=== PATIENT | female | born 1995 | race Caucasian/White ===

== ENCOUNTER 2016-09-09 23:30 | Emergency (ER) | payer SELFPAY ==
[2016-09-10] MEDS ORDERED: traMADol HCl 50 MG TAB ONE (01:36)
[2016-09-10] MEDS ORDERED: Benzonatate 100 MG CAP ONE (01:37)
--- NOTE | 2016-09-10 03:11 | PICIS ---
[facility] (FriSep 09, 2016 23:40 MDEB) PATIENT: NAME: Chely Sanderson, AGE: 21, GENDER: female, : Fri1995, TIME OF GREET: FriSep 09, 2016 23:30, PREFERRED LANGUAGE: Serbian, RACE: WHITE, ETHNICITY: Not or , ECODE BILLING MAP: [facility], SSN: [id number], Zip Code: [address], KG WEIGHT: 67.13, PHONE: , , , PERSON ID: [id number], PCP: Kennedi SWARTZ, GREYSON GORDON. (FriSep 09, 2016 23:40 MDEB) TRIAGE NOTES: CHEST PAIN WITH DEEP BREATHING - PAIN WITH EXHALATION. (FriSep 09, 2016 23:40 MDEB) COMPLAINT: CHEST PAINS. (FriSep 09, 2016 23:40 MDEB) ADMISSION: URGENCY: 3 Urgent, ADMISSION SOURCE: Home, TRANSPORT: Walk-in, BED: TRIAGE. (FriSep 09, 2016 23:40 MDEB) PAIN: Patient complains of pain described as, aching, on a scale 0-10 patient rates pain as 4. (FriSep 09, 2016 23:40 MDEB) IMMUNIZATIONS: Tetanus immunization up to date. (FriSep 09, 2016 23:40 MDEB) TRIAGE SCREENING: Patient denies suicidal ideation, Patient denies presence of domestic violence. (FriSep 09, 2016 23:40 MDEB) LMP: Last menstrual period: 09/07/2016. (FriSep 09, 2016 23:40 MDEB) PROVIDERS: TRIAGE NURSE: Natalya Thomas RN. (FriSep 09, 2016 23:40 MDEB) VITAL SIGNS: BP 124/72, Pulse 82, Resp 20, Temp 96.8, (Tympanic), Pain 4, O2 Sat 99, on Room Air, Time 09/09/2016 23:37. (23:37 MDEB) PREVIOUS VISIT ALLERGIES: No Known Drug Allergies. (FriSep 09, 2016 23:40 MDEB) KNOWN ALLERGIES No Known Drug Allergies CURRENT MEDICATIONS No recorded medications VITAL SIGNS (23:37 MDEB) VITAL SIGNS: BP: 124/72, Pulse: 82, Resp: 20, Temp: 96.8 (Tympanic), Pain: 4, O2 sat: 99 on Room Air, Time: 09/09/2016 23:37. NURSING ASSESSMENT: RESPIRATORY /CHEST (FriSep 10, 2016 01:45 BGAL) CONSTITUTIONAL: Patient arrives ambulatory, Gait steady, History obtained from patient, Patient appears comfortable, Patient cooperative, Patient alert, Oriented to person, place and time, Skin warm, Skin dry, Skin normal in color, Mucous membranes pink, Mucous membranes moist, Patient complains of Pain when deep breathing. PAIN: aching pain, bilateral chest. RESPIRATORY/CHEST: Breath sounds clear, Respiratory assessment findings include respiratory effort easy, Respirations regular, Conversing normally, Neck and chest exam findings include trachea midline, Chest expansion equal, Chest movement symmetrical. &a-1R&a+25V*p+0X*x2374J*c202B*c15G*c2P*p-0X&a-25V&a+1R Name: Chely Sanderson : 1995 F21 MedRec: [id number] AcctNum: [id number] Prepared: FriSep 10, 2016 04:51 by Interface Page 1 of 7 pMD [facility] ENT: Ear assessment findings include ear normal to inspection, Nasal assessment findings include nose normal to inspection, Sinuses normal, Nasal mucosa normal, Mouth and throat assessment findings include mouth inspection normal, Uvula normal, Tonsils normal, Mucous membranes pink, and moist, Able to swallow, Speech normal. SAFETY: Side rails up, Cart/Stretcher in lowest position, Family at bedside, Call light within reach, Hospital ID band on. NURSING PROCEDURE: DISCHARGE NOTE (FriSep 10, 2016 01:45 BGAL) DISCHARGE: Patient discharged to home, ambulating without assistance, friend driving, accompanied by friend, Summary of Care printed/ provided, Patient requested and was provided an electronic copy of Discharge Instructions, Transition record given to patient, Discharge instructions given to patient, Simple or moderate discharge teaching performed, Prescriptions given and instructions on side effects given, Medication reconciliation form given, Above person(s) verbalized understanding of discharge instructions and follow-up care. BELONGINGS: Belongings remain with patient, Valuables remain with patient. MEDICATION ADMINISTRATION SUMMARY Drug Name: Ultram, Dose Ordered: 2 tab(s), Route: Oral, Status: Given, Time: 01:44 09/10/2016, Drug Name: Bentyl oral, Dose Ordered: 10 mg, Route: Oral, Status: Given, Time: :44 09/10/2016, Drug Name: Tessalon Perles, Dose Ordered: 200 mg, Route: Oral, Status: Given, Time: 01:44 09/10/2016, Detailed record available in Medication Service section. MEDICATION SERVICE (FriSep 10, 2016 01:44 LLDO) Bentyl oral: Order: Bentyl oral (dicyclomine HCl) - Dose: 10 mg : Oral Schedule: Now Ordered by: Nirmal Kwan MD Entered by: Nirmal Kwan MD FriSep 10, 2016 01:31 , Acknowledged by: Su Olson RN FriSep 10, 2016 01:33 Documented as given by: Su Olson RN FriSep 10, 2016 01:44 Patient, Medication, Dose, Route and Time verified prior to administration. Amount given: 10 mg, Site: Medication administered P.O., Correct patient, time, route, dose and medication confirmed prior to administration, Patient advised of actions and side-effects prior to administration, Allergies confirmed and medications reviewed prior to administration, Patient in position of comfort, Side rails up, Cart in lowest position, Family at bedside. Tessalon Perles: Order: Tessalon Perles (benzonatate) - Dose: 200 mg : Oral Schedule: Now &a-1R&a+25V*p+0X*f7507V*c202B*c15G*c2P*p-0X&a-25V&a+1R Name: Maria E Chely Jaciel : 1995 F21 MedRec: [id number] AcctNum: [id number] Prepared: FriSep 10, 2016 04:51 by Interface Page 2 of 7 [facility] Ordered by: Nirmal Kwan MD Entered by: Nirmal Kwan MD FriSep 10, 2016 01:31 , Acknowledged by: Su Olson RN FriSep 10, 2016 01:33 Documented as given by: Su Olson RN FriSep 10, 2016 01:44 Patient, Medication, Dose, Route and Time verified prior to administration. Amount given: 200 mg, Site: Medication administered P.O., Correct patient, time, route, dose and medication confirmed prior to administration, Patient advised of actions and side-effects prior to administration, Allergies confirmed and medications reviewed prior to administration, Patient in position of comfort, Side rails up, Cart in lowest position, Family at bedside. Ultram: Order: Ultram (tramadol HCl) - Dose: 2 tab(s) : Oral Schedule: Now Ordered by: Nirmal Kwan MD Entered by: Nirmal Kwan MD FriSep 10, 2016 01:35 Documented as given by: Su Olson RN FriSep 10, 2016 01:44 Patient, Medication, Dose, Route and Time verified prior to administration. Amount given: 100 mg, Site: Medication administered P.O., Correct patient, time, route, dose and medication confirmed prior to administration, Patient advised of actions and side-effects prior to administration, Allergies confirmed and medications reviewed prior to administration, Patient in position of comfort, Side rails up, Cart in lowest position, Family at bedside. HPI COUGH (FriSep 10, 2016 04:11 LLDO) CHIEF COMPLAINT: Patient presents for evaluation of cough, productive of yellow sputum, Patient presents for evaluation of pt presents with several issues. the first is about 4 days of cough and congestion. in the past day or two pt has started having having some pleuritic, anterior chest pain associated with cough. some sore throat which she thinks is the result of the sinus treatment, currently being treated with clindamycin by her pcp for the past 10 days. HISTORIAN: History provided by patient, History provided by patient's partner, pt also wants to talk about her recurrent gerd and esophagitis, which seems to be getting worse in the past month with about 8 pounds of weight loss. LOCATION: Symptoms are generalized. QUALITY: Denies tightness, Denies wheezing. SEVERITY: Maximum severity of symptoms moderate, Currently symptoms are moderate. TIME COURSE: Gradual onset of symptoms, Symptoms are worsening, are intermittent. ASSOCIATED WITH: Associated symptoms reviewed, Associated with dyspnea on exertion, Associated with fever, subjective, Associated with upper respiratory infection, No associated wheezing, No associated weakness. EXACERBATED BY: Patient's condition exacerbated by deep breaths, &a-1R&a+25V*p+0X*k5483X*c202B*c15G*c2P*p-0X&a-25V&a+1R Name: Chely Sanderson : 1995 F21 MedRec: [id number] AcctNum: [id number] Prepared: FriSep 10, 2016 04:51 by Interface Page 3 of 7 [facility] Patient's condition exacerbated by exercise, Patient's condition exacerbated by lying flat. RELIEVED BY: Patient's condition relieved by rest, Patient's condition relieved by upright position. ROS CONSTITUTIONAL: Historian reports fatigue, reports fever. Subjective fever of "LOW GRADE". (FriSep 10, 2016 04:24 LLDO) EYES: Negative eye review of systems, Historian denies eye pain, denies eye redness, denies eye discharge. (FriSep 10, 2016 04:41 LLDO) ENT: Negative ears, nose, throat review of systems, Historian denies epistaxis, denies rhinorrhea, denies sinus pain, denies sore throat. (FriSep 10, 2016 04:41 LLDO) CARDIOVASCULAR: Historian reports dyspnea on exertion. (FriSep 10, 2016 04:24 LLDO) RESPIRATORY: Historian reports cough, reports sputum. described as thick, yellow, Historian denies stridor, denies wheezing. (FriSep 10, 2016 04:24 LLDO) GI: Historian reports abdominal pain, reports anorexia. (FriSep 10, 2016 04:24 LLDO) GENITOURINARY FEMALE: Negative genitourinary review of systems, Historian denies dysuria, denies frequency, denies urgency. (FriSep 10, 2016 04:41 LLDO) MUSCULOSKELETAL: Negative musculoskeletal review of systems, Historian denies arthralgias, denies back pain, denies injury, denies myalgias, denies neck pain. (FriSep 10, 2016 04:41 LLDO) SKIN: Negative skin review of systems, Historian denies cellulitis, denies rash, denies skin changes, denies skin lesions. (FriSep 10, 2016 04:41 LLDO) NEUROLOGIC: Negative neurologic review of systems, Historian denies confusion, denies dizziness, denies focal weakness, denies mental status changes. (FriSep 10, 2016 04:41 LLDO) HEMO/LYMPHATIC: Normal hematologic/lymphatic system review, Historian denies abnormal blood clotting, denies gum bleeding, denies petechiae. (FriSep 10, 2016 04:41 LLDO) ALLERGIC/IMMUNOLOGIC: Normal allergy/immunologic system review, Historian denies eczema, denies environmental allergies, denies food allergies. (FriSep 10, 2016 04:41 LLDO) PSYCHIATRIC: Historian reports anxiety. (FriSep 10, 2016 04:24 LLDO) NOTES: All systems reviewed, negative except as described above. (FriSep 10, 2016 04:24 LLDO) PAST MEDICAL HISTORY MEDICAL HISTORY: Past medical history includes gastrointestinal disease, gastroesophageal reflux disease, Past medical history includes gastrointestinal disease, gastroesophageal &a-1R&a+25V*p+0X*q0135E*c202B*c15G*c2P*p-0X&a-25V&a+1R Name: Chely Sanderson : 1995 F21 MedRec: [id number] AcctNum: [id number] Prepared: FriSep 10, 2016 04:51 by Interface Page 4 of 7 [facility] REC[facility] reflux disease. (FriSep 09, 2016 23:40 MDEB) FEMALE SURGICAL HISTORY: Patient has no surgical history, Patient has no surgical history. (FriSep 09, 2016 23:40 MDEB) PSYCHIATRIC HISTORY: Notes: VERIFIED 08-05-16, Notes: ANXIETY, :PANIC ATTACKS". (FriSep 09, 2016 23:40 MDEB) SOCIAL HISTORY: Social History includes VERIFIED 08-05-16, Patient drinks socially, Patient is a former drug user, abused marijuana. (FriSep 09, 2016 23:40 MDEB) NOTES: Nursing records reviewed, Agree with nursing records, Medication list reviewed. (FriSep 10, 2016 04:41 LLDO) PHYSICAL EXAM CONSTITUTIONAL: Vital Signs Reviewed, Patient afebrile, Pulse normal, Blood pressure normal, Respiratory rate normal, Normal pulse oximetry, Patient appears, uncomfortable, Patient appears, in moderate pain distress, Patient alert and oriented to person, place and time, Nursing notes reviewed. (FriSep 10, 2016 04:35 LLDO) HEAD: Head exam normal, Head exam included findings of head atraumatic, normocephalic. (FriSep 10, 2016 04:41 LLDO) EYES: Eye exam normal, Eye exam included findings of eyelids normal to inspection, Pupils equally round and reactive to light, Extraocular muscles intact. (FriSep 10, 2016 04:41 LLDO) ENT: Ear exam normal, Nose exam normal, Pharynx, injected bilaterally, with swelling bilaterally, symmetrical, Maxillary sinuses with, tenderness on the left. (FriSep 10, 2016 04:35 LLDO) NECK: Neck exam normal, Neck exam included findings of normal range of motion, Trachea midline, no meningeal signs, no tenderness. (FriSep 10, 2016 04:41 LLDO) RESPIRATORY CHEST: Respiratory exam included findings of no respiratory distress, Rales present, Chest exam included findings of chest movement symmetrical, Chest expansion equal, RALES MILD AND SCATTERED. (FriSep 10, 2016 04:35 LLDO) CARDIOVASCULAR: Cardiovascular assessment normal, Cardiovascular exam included findings of heart rate regular rate and rhythm, Heart sounds normal. (FriSep 10, 2016 04:41 LLDO) ABDOMEN FEMALE: Abdominal exam included findings of abdomen tender, to the epigastric region, mild intensity, Bowel sounds normal, Liver normal, Spleen normal, no distension, no mass, no pulsatile masses, no peritoneal signs. (FriSep 10, 2016 04:35 LLDO) BACK: Back exam normal, Back exam included findings of normal inspection, range of motion normal. (FriSep 10, 2016 04:41 LLDO) UPPER EXTREMITY: Upper extremity exam normal, Upper extremity exam included findings of inspection normal, Range of motion normal. (FriSep 10, 2016 04:41 LLDO) LOWER EXTREMITY: Lower extremity exam normal, Lower extremity exam included findings of inspection normal, Range of motion normal. (FriSep 10, 2016 04:41 LLDO) &a-1R&a+25V*p+0X*s9962D*c202B*c15G*c2P*p-0X&a-25V&a+1R Name: Chely Sanderson : 1995 F21 MedRec: [id number] AcctNum: [id number] Prepared: FriSep 10, 2016 04:51 by Interface Page 5 of 7 [facility] NEURO: Neuro exam normal, Neuro exam findings include patient oriented to person, place and time, Speech normal, [place] coma scale 15. (FriSep 10, 2016 04:41 LLDO) SKIN: Skin exam normal, Skin exam included findings of skin warm, dry, and normal in color, no rash. (FriSep 10, 2016 04:41 LLDO) PSYCHIATRIC: Psychiatric exam normal, Psychiatric exam included findings of patient oriented to person place and time, Normal affect. (FriSep 10, 2016 04:41 LLDO) EVENTS TRANSFER: Triage to Emergency Triage. (FriSep 09, 2016 23:40 MDEB) Emergency Triage to Main ED -03. (23:40 MDEB) Removed from Emergency Main ED -03. (FriSep 10, 2016 01:48 BGAL) PROBLEM LIST No recorded problems DIAGNOSIS (FriSep 10, 2016 01:33 LLDO) FINAL: PRIMARY: Acute bronchitis, ADDITIONAL: GERD WITHOUT ESOPHAGITIS. DISPOSITION PATIENT: Disposition Type: Discharge, Disposition: *Discharge Home. (FriSep 10, 2016 01:33 LLDO) Patient left the department. (FriSep 10, 2016 01:48 BGAL) INSTRUCTION (FriSep 10, 2016 01:37 LLDO) DISCHARGE: BRONCHITIS, ABX TX (ADULT), REFLUX ESOPHAGITIS ADULT. FOLLOWUP: Rafael SWARTZ., [facility] , , Follow up with Primary Care Physician in 7-10 days. SPECIAL: Follow-up with your PCP. PRESCRIPTION Bentyl oral: TABLET : 20 mg : ORAL : Quantity: 1 Unit: tab(s) Route: ORAL Schedule: 2 times a day Dispense: 30 May substitute. Refills: 2 . (FriSep 10, 2016 01:35 LLDO) NOTES: No Refills. (FriSep 10, 2016 01:35 LLDO) Phenergan DM: SYRUP : : ORAL : Quantity: 1-2 Unit: teaspoon Route: ORAL Schedule: every 4 hours prn Dispense: 120 Unit: mL May substitute. Refills: 1 . (FriSep 10, 2016 01:35 LLDO) NOTES: ^s=No Refills No Refills. (FriSep 10, 2016 01:35 LLDO) Ultram: TABLET : 50 mg : ORAL : Quantity: 1-2 Unit: tab(s) Route: ORAL Schedule: every 4 hours prn Dispense: 30 May substitute. Refills: 1 . (FriSep 10, 2016 01:36 LLDO) IMAGING &a-1R&a+25V*p+0X*o0452R*c202B*c15G*c2P*p-0X&a-25V&a+1R Name: Chely Sanderson : 1995 F21 MedRec: [id number] AcctNum: [id number] Prepared: FriSep 10, 2016 04:51 by Interface Page 6 of 7 [facility] *DISCHARGE INSTRUCTIONS RECEIPT: Image captured from scanner. (FriSep 10, 2016 01:49 BGAL) Page 2 added. Image captured from scanner. (FriSep 10, 2016 01:49 BGAL) *SUPPLY CHARGE SHEET: Image captured from scanner. (FriSep 10, 2016 01:50 BGAL) ADMIN (FriSep 10, 2016 04:41 LLDO) DIGITAL SIGNATURE: MD Kwan Lloyd. Morrell: BGAL=HOMERO Olson, Su LLDO=MD Kwan Lloyd MDEB=HOMERO Thomas, Natalya &a-1R&a+25V*p+0X*q2696M*c202B*c15G*c2P*p-0X&a-25V&a+1R Name: hCely Sanderson : 1995 F21 MedRec: [id number] AcctNum: [id number] Prepared: FriSep 10, 2016 04:51 by Interface Page 7 of 7 [facility] RECONCIL[facility]ATION You were seen in the Emergency Department on: FriSep 09, 2016 KNOWN ALLERGIES No Known Drug Allergies MEDICATIONS GIVEN WHILE IN THE EMERGENCY DEPARTMENT Tessalon Perles (benzonatate) - Dose: 200 milligram(s) : Oral Bentyl oral (dicyclomine HCl) - Dose: 10 milligram(s) : Oral Ultram (tramadol HCl) - Dose: 2 tab(s) : Oral Notes from the emergency department Reviewed with family Reviewed with patient Reviewed with family Reviewed with patient PRESCRIPTIONS (3) Printed (3) Bentyl oral : TABLET : 20 mg : ORAL Quantity: 1, Unit: tab(s), Route: ORAL, Schedule: 2 times a day, Dispense: 30 Phenergan DM : SYRUP : : ORAL Quantity: 1-2, Unit: teaspoon, Route: ORAL, Schedule: every 4 hours prn, Dispense: 120 Unit: milliliter(s) &a-1R&a+25V*p+0X*b3527X*c202B*c15G*c2P*p-0X&a-25V&a+1R Name: Chely Sanderson : 1995 F21 MedRec: [id number] AcctNum: [id number] Prepared: Cong Sep 10, 2016 04:51 by Interface pMD [facility]TDD
== END 2016-09-10 01:45 | disposition home or self-care (01) ==
LOC: MADERS 23:30
DX: J20.9 Acute bronchitis, unspecified (principal); K21.9 Gastro-esophageal reflux disease without esophagitis; K20.9 Esophagitis, unspecified; F41.0 Panic disorder [episodic paroxysmal anxiety]
CPT/HCPCS: 99283

== ENCOUNTER 2016-10-16 22:34 | Emergency (ER) | payer SELFPAY ==
[2016-10-16 23:31] LABS: #Eosinphils 0.1 thou/uL (0.0-0.7); #Lymphocytes 1.8 thou/uL (1.20-3.40); #Monocytes 0.5 thou/uL (0.11-0.59); #Neutrophils 6.1 thou/uL (1.40-6.50); %Basophils 0.3 % (0.0-1.0); %Eosinophils 0.7 % (0.0-10.0); %Lymphocytes 21.7 % (28.0-48.0); %Monocytes 5.8 % (0.0-4.0); %Neutrophils 71.5 % (31.0-61.0); Hemoglobin 12.9 g/dL (12.0-16.0); Mean Corpuscular HGB CONC 33.9 g/dL (32.0-36.0); Mean Corpuscular Hemoglobin 31.6 pg (25.0-35.0); Mean Corpuscular Volume 93.4 fl (77.0-87.0); Mean Platelet Volume 8.7 fL (7.4-10.4); Platelet Count 218 thou/uL (130-400); RBC Distribution Width 11.8 % (11.5-14.5); Red Blood Cell (RBC) Count 4.09 mill/uL (4.00-5.20); White Blood Cell (WBC) Count 8.5 thou/uL (4.8-10.8)
[2016-10-16 23:40] LABS: Anion Gap 18 mmol/L (10-20); BUN (Urea Nitrogen) 7 mg/dL (7.0-18.7); Calc. Creatinine Clearance 0 mL/min (70-130); Calcium 9.6 mg/dL (7.8-10.44); Carbon Dioxide 24 mmol/L (22-29); Chloride 104 mmol/L (98-107); Estimated GFR-MDRD Greater than 90; Glucose 90 mg/dL (70-105); Potassium 3.6 mmol/L (3.5-5.1); Sodium 142 mmol/L (136-145)
== END 2016-10-17 | disposition home or self-care (01) ==
LOC: MADERS 22:34
DX: F41.1 Generalized anxiety disorder (principal); K21.9 Gastro-esophageal reflux disease without esophagitis; F41.0 Panic disorder [episodic paroxysmal anxiety]
CPT/HCPCS: 36416; 80048; 85025; 99283; 36415-59